=== PATIENT | male | born 1995 | race Caucasian/White ===

== ENCOUNTER 2016-07-24 08:02 | Day surgery (SDC) | payer BC, MEDICAID ==
--- NOTE | 2016-07-16 10:47 | RADIOLOGY REPORT (SQ) ---
EXAM DESCRIPTION: CHEST PA/LATERAL COMPLETED DATE/TIME: 07/16/2016 10:39 am REASON FOR STUDY: PRE OP COMPARISON: 06/26/2010. EXAM PARAMETERS: NUMBER OF VIEWS: two views TECHNIQUE: Digital Frontal and Lateral radiographic views of the chest acquired. RADIATION DOSE: NA LIMITATIONS: none FINDINGS: LUNGS AND PLEURA: No opacities, masses or pneumothorax. No pleural effusion. MEDIASTINUM AND HILAR STRUCTURES: No masses or contour abnormalities. HEART AND VASCULAR STRUCTURES: Heart normal size. No evidence for failure. BONES: No acute findings. HARDWARE: None in the chest. OTHER: No other significant finding. IMPRESSION: NO SIGNIFICANT RADIOGRAPHIC FINDING IN THE CHEST. TECHNICAL DOCUMENTATION: JOB ID: [id number] [employer]- All Rights Reserved
[2016-07-16 11:37] LABS: APPEARANCE,URINE CLEAR; BILIRUBIN,URINE NEGATIVE (NEGATIVE); GLUCOSE, URINE NEGATIVE (NEGATIVE); KETONES,URINE NEGATIVE (NEGATIVE); LEUKOCYTE ESTERASE,URINE NEGATIVE (NEGATIVE); NITRITE,URINE NEGATIVE (NEGATIVE); PROTEIN,URINE NEGATIVE (NEGATIVE); URINE SPECIFIC GRAVITY 1.023; UROBILINOGEN,URINE NEGATIVE mg/dL (<2.0)
[2016-07-16 11:41] LABS: ABSOLUTE LYMPHOCYTES (AUTO) 1.4 10^3/uL (0.5-4.7); ABSOLUTE MONOCYTES (AUTO) 0.3 10^3/uL (0.1-1.4); ABSOLUTE NEUT (AUTO) 1.7 10^3/uL (1.7-8.2); BASOPHILS % (AUTO) 0.6 % (0-2); EOSINOPHILS % (AUTO) 1.3 % (0-6); HEMATOCRIT 43.4 % (37.9-51.0); HEMOGLOBIN 15.1 g/dL (13.5-17.0); HGB HCT DIFFERENCE 1.9; LYMPHOCYTES % (AUTO) 40.4 % (13-45); MEAN CORPUSCULAR HEMOGLOBIN 29.7 pg (27.0-33.4); MEAN CORPUSCULAR HGB CONC 34.9 g/dL (32.0-36.0); MEAN CORPUSCULAR VOLUME 85 fl (80-97); MONOCYTES % (AUTO) 9.1 % (3-13); RED BLOOD COUNT 5.11 10^6/uL (4.35-5.55); RED CELL DISTRIBUTION WIDTH 12.8 % (11.5-14.0); SEGMENTED NEUTROPHILS % (AUTO) 48.6 % (42-78); WHITE BLOOD COUNT 3.4 10^3/uL (4.0-10.5)
[2016-07-16 12:07] LABS: ANION GAP 13 (5-19); BLOOD UREA NITROGEN 12 mg/dL (7-20); CALCIUM 9.9 mg/dL (8.4-10.2); CARBON DIOXIDE 28 mmol/L (22-30); CHLORIDE 105 mmol/L (98-107); CREATININE RESULT 0.93 mg/dL (0.52-1.25); GLUCOSE 72 mg/dL (75-110); POTASSIUM 4.5 mmol/L (3.6-5.0)
--- NOTE | 2016-07-16 13:36 | EKG REPORT ---
SEVERITY:- NORMAL ECG - SINUS RHYTHM : Confirmed by: Joshua Brewster MD 16-Jul-2016 13:34:51
[~2016-07-24 08:02] MED LIST: BUPIVACAINE HCL 0.5 % INJ/PF 30 ML SDV ONE; CEFAZOLIN 2 GM/D5W RTU 2 GM/50 ML RTUPB IV PRN; EPINEPHRINE INJ/PF 1 MG/1 ML AMPULE ONE; LACTATED RINGERS 1000 ML IV PRN; LIDOCAINE 0.5% INJ-PF (5 MG/ML) 50 ML SDV SUBCUT PRN
[2016-07-24] MEDS ORDERED: EPINEPHRINE INJ/PF 1 MG/1 ML AMPULE ONE ×2 (10:04→11:46)
[2016-07-24] MEDS ORDERED: HYDROMORPHONE HCL INJ/PF 2 MG/ML AMPULE ONE (10:11)
[2016-07-24] MEDS ORDERED: FENTANYL CITRATE INJ/PF 250 MCG/5 ML AMPULE ONE (10:11)
[2016-07-24] MEDS ORDERED: MIDAZOLAM 2 MG/2 ML INJ ONE (10:12)
[2016-07-24] MEDS ORDERED: PROPOFOL INJ 200 MG/20 ML VIAL IV ONE (10:12)
[2016-07-24] MEDS ORDERED: ACETAMINOPHEN 100 ML IV ONE (10:12)
[2016-07-24] MEDS ORDERED: EPHEDRINE SULFATE INJ 50 MG/1 ML AMPULE ONE (10:12)
[2016-07-24] MEDS ORDERED: MEPERIDINE HCL/PF INJ 25 MG/1 ML DISP.SYRIN IV PRN (11:37)
[2016-07-24] MEDS ORDERED: FENTANYL CITRATE INJ/PF 100 MCG/2 ML AMPUL IV PRN ×3 (11:37)
[2016-07-24] MEDS ORDERED: DIPHENHYDRAMINE HCL 50 MG/ML VIAL IV PRN (11:37)
[2016-07-24] MEDS ORDERED: PROMETHAZINE HCL INJ 25 MG/1 ML VIAL IV PRN ×2 (11:37)
[2016-07-24] MEDS ORDERED: MORPHINE SULFATE 10 MG/ML INJ IV PRN (11:37)
[2016-07-24] MEDS ORDERED: OXYCODONE-ACETAMINOPHEN 5-325 MG TABLET PO PRN ×2 (11:37)
--- NOTE | 2016-07-24 13:16 | Operative Report ---
Operative Report DATE OF SURGERY: 07/24/16 PREOPERATIVE DIAGNOSIS: Left ACL tear POSTOPERATIVE DIAGNOSIS: Same plus radial tear lateral meniscus OPERATION: Left knee arthroscopic ACL reconstruction and partial lateral meniscectomy SURGEON: ELIZABETH SOLITARIO ANESTHESIA: GA TISSUE REMOVED OR ALTERED: None COMPLICATIONS: None ESTIMATED BLOOD LOSS: 10 mL INTRAOPERATIVE FINDINGS: As above PROCEDURE: Patient was brought to the operating room and successfully induced and intubated in a the supine position. Once the tube was secured a thigh tourniquet was applied to the left lower extremity was prepped and draped in a normal surgical fashion. Timeout was done identifying the left knee has a correct site. The extremity was exsanguinated with an Esmarch and then the tourniquet was inflated at 300 mmHg 0.25% of Marcaine was injected into the anticipated portal sites. 11 blade was used to establish the anterolateral portal. Scope was introduced and the capsule was distended with sterile saline solution. Under direct visualization the anteromedial portal sites was established first by applying a spinal needle and then established with the 11 blade. Probe was introduced and a diagnostic scope was done. A site of the old ACL rupture I visualized a small radial tear in the anterior horn of the lateral meniscus. I proceeded to use a meniscal biter and 4.0mm shaver. Once I was satisfied with the resection of the radial tear I turned my attention to preparing for the ACL. I used the combination of 5.5 mm shaver and 50 radiofrequency ablator to do my debridement of the torn anterior cruciate ligament and expose the lateral wall. I used a chondral pick to paco where I would like to place my femoral tunnel. This was confirmed with the medial over- the-top guide. I flexed the knee as much as possible and use my spade tip guidepin and drilled through. I was able to measure about a 30 mm tunnel before I pierced the cortex and passed the pin through the lateral aspect of the thigh. I used the 10 mm low-profile reamer then to do my femoral tunnel and stopped at 25 mm in depth. I used a shaver then to clean out the bony debris. I visualized the tunnel with a camera and make sure had a back wall and did not pierced the lateral cortex. At this point I fed a FiberWire through the eyelet and passed it through the lateral aspect of the thigh. This FiberWire were then later on the shuttle through the tibial tunnel to shuttle the graft. In the meantime it was clamped outside the skin. At this point I grabbed my retro-cutter guide which was marked at [address] on the anterior cruciate ligament footprint on the tibial side. This had been cleaned off with a shaver and bur to Fregosi ablator as well. I used the scope anterior horn of the lateral meniscus as a guide as well as 7 mm anterior to the PCL. Once I was happy with the placement I did a medial incision and measured the tibial tunnel to be 35mm. Once again I use the shaver to clean out the debris in the knee. The Achilles was preparing the back table and the made sure that I was able to pass through it 10 mm tunnel with the bone plug side and the tendinous portion. The graft had been placed in a moist sponge and ready for insertion once the tunnels were completed. I used a probe to grabbed the have the portion of the FiberWire suture that was left in the femoral tunnel and passed it through the tibial tunnel. At this point we shuttled the Achilles tendon allograft through the tibial tunnel into the femoral tunnel successfully using the bone plug to fit nicely in the femoral tunnel. I proceeded to notch the tunnel and placed a nitinol wire. I placed a 8 x 23mm bicomposite screw securing the bone plug in the femoral tunnel. I then turned my attention to the tibial tunnel where I notched it and then placed a nitinol wire for placement of the screw. While holding the leg in a reverse Sea position by my business support assistant I pulled tension on the tibial side of the graft and placed my interference screw securing the graft. Sea was used to showing good endpoint and minimal translation. Scope was introduced and I used a probe to check the tension on the anterior cruciate ligament graft. I was satisfied with the tension so at this point fluid was removed from the knee and the instruments were removed. I proceeded to close my 2 portal sites with 3-0 nylon and the tibial incision with 0 Vicryl to Vicryl and 2-0 nylon. Xeroform, 4 x 4, AVD pad, Sof-Rol was applied and then overwrapped with an Delta bandage. Tourniquet was let down and the drapes were removed. Patient was extubated and sent to PACU in stable condition.
--- NOTE | 2016-07-24 13:25 | PDOC DISCHARGE SUMMARY ---
Discharge Summary (SDC) - Discharge Final Diagnosis: Left ACL reconstruction and partial lateral meniscectomy Date of Surgery: 07/24/16 Discharge Date: 07/24/16 Treatment or Instructions: Patient instructed to follow up in 10-14 days. Patient instructed to keep dressing dry clean and intact for 4 days and then allowed to remove. At that point patient can shower and apply Band-Aids as needed. Patient can weight-bear as tolerated and do range of motion exercises as tolerated. Crutches for support and safety. Can wean crutches once stable on his feet. Patient instructed to call the office if patient develops fevers chills redness and drainage from the surgical sites. Prescriptions: Oxycodone HCl/Acetaminophen [Percocet 5-325 mg Tablet] 1 - 2 tab PO ASDIR PRN # 40 tablet PRN Reason: Referrals: GLORIA SEPULVEDA MD [Primary Care Provider] - Discharge Diet: As Tolerated Respiratory Treatments at Home: Deep Breathing/Coughing Discharge Activity: Keep Legs Elevated, No Lifting/Push/Pulling, Walk Frequently Report the Following to Your Physician Immediately: Shortness of Breath, Vomiting, Increase in Pain, Fever over 101 Degrees, Unusual Bleeding, Redness, Swelling, Warmth, Drainage-Yellow, Drainage-[place], Drainage-Green, Drainage-Foul Smelling, Visual Disturbance, Seizure
[2016-07-24] MEDS ORDERED: SUCCINYLCHOLINE CHLORIDE INJ 200 MG/10 ML VIAL ONE (14:17)
[2016-07-24] MEDS ORDERED: ONDANSETRON HCL INJ/PF 4 MG/2 ML SDV ONE (14:17)
[2016-07-24] MEDS ORDERED: ROCURONIUM BROMIDE INJ 50 MG/5 ML VIAL IV ONE (14:17)
[2016-07-24] MEDS ORDERED: DEXAMETHASONE SOD PHOSPHATE INJ 4 MG/1 ML VIAL ONE (14:17)
[2016-07-24 18:17] VITALS: BP 130/72
--- NOTE | 2016-07-29 12:16 | EKG REPORT ---
SEVERITY:- OTHERWISE NORMAL ECG - SINUS ARRHYTHMIA, RATE [id number] : Confirmed by: Kasey Corona MD 29-Jul-2016 12:16:01
== END 2016-07-24 18:00 | disposition home or self-care (01) ==
LOC: OROUT 08:02
PROVIDERS: ATTEND Orthopaedic Surgery
PROC: 0MQP4ZZ Repair Left Knee Bursa and Ligament, Percutaneous Endoscopic Approach (ICD-10-PCS; 2016-07-24)
PROC: 0SBD4ZZ Excision of Left Knee Joint, Percutaneous Endoscopic Approach (ICD-10-PCS; principal; 2016-07-24 10:00)
DX: M23.612 Other spontaneous disruption of anterior cruciate ligament of left knee (principal); M23.301 Other meniscus derangements, unspecified lateral meniscus, left knee; Z79.899 Other long term (current) drug therapy
CPT/HCPCS: 93005; 36415; 85025; 80048; 81001; 71020; 93010; 29881; 29888; C1713; J2250; J3490 ×2; J1100; J0171; J3010; J1170; J0330; J2405; J2704; J0690; J0131; 1400